=== PATIENT | female | born 1980 | race African-American/Black ===

== ENCOUNTER 2020-07-07 01:40 | Emergency (ER) | payer OTHER ==
[2020-07-07 02:08] VITALS: BP 141/72; PULSE 96; TEMP 97.9; BMI 32.5
== END 2020-07-07 05:32 | disposition home or self-care (01) ==
LOC: JER 01:40
DX: F19.920 Other psychoactive substance use, unspecified with intoxication, uncomplicated (principal)
CPT/HCPCS: 36415; 80307; 99283-25